=== PATIENT | male | born 1995 ===

== ENCOUNTER 2018-11-24 09:15 | Emergency (ER) | payer SELFPAY ==
[~2018-11-24] VITALS: Ht 170.2 cm; Wt 81.8 kg
[2018-11-24] MEDS ORDERED: TETanus/Pertussis (Acell)/Diphther VAC/PF (Tdap-Adult) 0.5ml syringe IM ONE (09:20)
[2018-11-24] MEDS ORDERED: LIDOcaine 1% w/epiNEPHrine 1:200,000 30ml vial IM ONE (09:20)
[2018-11-24 15:30] VITALS: BP 124/80
== END 2018-11-24 15:31 | disposition home or self-care (01) ==
LOC: ER 09:15
DX: S81.812A Laceration without foreign body, left lower leg, initial encounter (principal); W26.8XXA Contact with other sharp object(s), not elsewhere classified, initial encounter; Y93.89 Activity, other specified; Y92.89 Other specified places as the place of occurrence of the external cause; Y99.8 Other external cause status
CPT/HCPCS: 12032; 99284